=== PATIENT | male | born 1960 | race Caucasian/White ===

== ENCOUNTER 2017-10-03 05:39 | Inpatient (IN) | payer OTHER ==
[~2017-10-03] VITALS: Ht 180.3 cm; Wt 78.0 kg
[~2017-10-03 05:39] MED LIST: CLOB15CR19 TD; CODEINE PO; FIORICET PO; LISI-170 PO; MAGNESIUM HYDROXIDE 8%, 30ML UDC PO SCH; OXYC10TA6 PO
[2017-10-03] MEDS ORDERED: LACTATED RINGERS 1,000 ML IV SCH (06:19)
[2017-10-03] MEDS ORDERED: BUPIVACAINE/PF 0.25% ONE (06:50)
[2017-10-03] MEDS ORDERED: LIDOCAINE/PF 0.5% ,50ML ONE (06:50)
[2017-10-03] MEDS ORDERED: EPINEPHRINE 1 MG/ML, 1ML ONE (06:51)
[2017-10-03] MEDS ORDERED: THROMBIN 5,000 UNIT VIAL TP ONE (06:51)
[2017-10-03] MEDS ORDERED: VANCOMYCIN 1,000 MG ONE (06:51)
[2017-10-03] MEDS ORDERED: DEXAMETHASONE 4 MG/ML, 1ML ONE (07:27)
[2017-10-03] MEDS ORDERED: REMIFENTANIL 2 MG ONE (07:27)
[2017-10-03] MEDS ORDERED: METOCLOPRAMIDE 5 MG/ML, 2ML ONE (07:27)
[2017-10-03] MEDS ORDERED: GLYCOPYRROLATE 0.4 MG/2 ML, 2ML ONE (07:27)
[2017-10-03] MEDS ORDERED: EPHEDRINE 50 MG/ML, 1ML ONE (07:27)
[2017-10-03] MEDS ORDERED: ONDANSETRON 2MG/ML, 2ML ONE (07:27)
[2017-10-03] MEDS ORDERED: CEFAZOLIN 1,000 MG ONE (07:27)
[2017-10-03] MEDS ORDERED: PROPOFOL 50 ML ONE (07:27)
[2017-10-03] MEDS ORDERED: FENTANYL PF 100 MCG/2ML ONE ×4 (07:28→12:47)
[2017-10-03] MEDS ORDERED: MIDAZOLAM 1 MG/ML, 5ML ONE (07:28)
[2017-10-03] MEDS ORDERED: BUPIVACAINE/PF 0.25% INFIL ONE (08:43)
[2017-10-03] MEDS ORDERED: ROCURONIUM 10MG/ML,5ML ONE (09:37)
[2017-10-03] MEDS ORDERED: VANCOMYCIN 500 MG ONE (10:02)
[2017-10-03] MEDS ORDERED: KETAMINE 10 MG/ML, 20ML ONE (10:55)
[2017-10-03] MEDS ORDERED: EPHEDRINE 50 MG/ML, 1ML IVPush PRN (12:00)
[2017-10-03] MEDS ORDERED: ONDANSETRON 2MG/ML, 2ML IVPush PRN ×2 (12:00→12:30)
[2017-10-03] MEDS ORDERED: MIDAZOLAM 1 MG/ML, 2ML IV PRN (12:00)
[2017-10-03] MEDS ORDERED: ALBUTEROL SULFATE 2.5 MG/3 ML NPPB PRN (12:00)
[2017-10-03] MEDS ORDERED: hydrALAzine 20 MG/ML, 1ML IV PRN (12:00)
[2017-10-03] MEDS ORDERED: LABETALOL 5MG/ML, 20ML IV PRN (12:00)
[2017-10-03] MEDS ORDERED: METOCLOPRAMIDE 5 MG/ML, 2ML IV PRN (12:00)
[2017-10-03] MEDS ORDERED: HYDROmorphone 1 MG/ML, 1ML IV PRN (12:00)
[2017-10-03] MEDS ORDERED: OXYcodone 5 MG/5 ML ORAL.SOL UDC PO PRN (12:00)
[2017-10-03] MEDS ORDERED: ACETAMINOPHEN 650 MG/20.3 ML UDC ONE (12:04)
[2017-10-03] MEDS ORDERED: OXYcodone 5 MG/5 ML ORAL.SOL UDC ONE (12:04)
[2017-10-03] MEDS: FENTANYL PF 100 MCG/2ML IV PRN ×4 (12:07→12:56)
[2017-10-03] MEDS ORDERED: MEPERIDINE/PF 50 MG/ML ONE (12:10)
[2017-10-03] MEDS: MEPERIDINE/PF 25MG/0.5ML IVPush PRN ×2 (12:12→12:34)
[2017-10-03] MEDS ORDERED: LABETALOL 5MG/ML, 20ML IVPush PRN (12:30)
[2017-10-03] MEDS ORDERED: D5%-0.9% NACL+KCL 20MEQ 1,000 ML IV SCH (12:30)
[2017-10-03] MEDS ORDERED: PROMETHAZINE 25 MG/ML, 1ML IM PRN (12:30)
[2017-10-03] MEDS ORDERED: MAGNESIUM HYDROXIDE 8%, 30ML UDC PO PRN (12:30)
[2017-10-03] MEDS ORDERED: SENNA/DOCUSATE TABLET PO PRN (12:30)
[2017-10-03] MEDS ORDERED: METHOCARBAMOL 750 MG TABLET PO PRN (12:30)
[2017-10-03] MEDS ORDERED: METHOCARBAMOL 1,000 MG in DEXTROSE 5% 100 ML IV ONE ×2 (12:30→13:00)
[2017-10-03] MEDS ORDERED: HYDROcodone/APAP 10/325 MG TABLET PO PRN (12:30)
[2017-10-03] MEDS ORDERED: PHARMACY MAY ADJ FOR RENAL FX MC PRN (12:30)
[2017-10-03] MEDS ORDERED: HYDROcodone/APAP 5/325 TABLET PO PRN (12:30)
[2017-10-03] MEDS ORDERED: BISACODYL 10 MG SUPP PR PRN (12:30)
[2017-10-03 13:30] VITALS: BP 128/82
[2017-10-03] MEDS ORDERED: BUTALBIT/ACETAMIN/CAFF/CODEINE CAPSULE PO PRN (14:00)
[2017-10-03] MEDS ORDERED: ONDANSETRON ODT 4 MG PO PRN (14:00)
[2017-10-03] MEDS ORDERED: CLOBETASOL PROPIONATE CRM 0.05%, 15GM TP PRN (14:00)
[2017-10-03] MEDS: ACETAMINOPHEN 500 MG TABLET PO SCH ×2 (14:51→20:10)
[2017-10-03] MEDS: NS + 20MEQ KCL 1,000 ML IV SCH ×2 (14:52→23:23)
[2017-10-03] MEDS ORDERED: METOPROLOL 1 MG/ML, 5ML ONE (15:25)
[2017-10-03] MEDS ORDERED: SUCCINYLCHOLINE 20 MG/ML, 10ML ONE (15:25)
[2017-10-03] MEDS: CEFAZOLIN PMX 1GM/50ML 50 ML IVPB SCH ×2 (15:30→23:23)
[2017-10-03] MEDS ORDERED: CEFAZOLIN PMX 1GM/50ML 50 ML IVPB SCH (15:30)
[2017-10-03] MEDS: OXYcodone IR 5MG TABLET PO PRN ×2 (16:00→17:08)
[2017-10-03 20:00] VITALS: BP 132/80
[2017-10-03] MEDS: METHOCARBAMOL 750 MG in DEXTROSE 5% 100 ML IV SCH (20:10)
[2017-10-03] MEDS: SODIUM CHLORIDE FLUSH 10ML SYR IVF SCH (20:12)
[2017-10-03] MEDS ORDERED: METHOCARBAMOL 750 MG in DEXTROSE 5% 100 ML IV PRN (20:30)
[2017-10-03 23:26] VITALS: BP 120/74
[2017-10-04] MEDS: ACETAMINOPHEN 500 MG TABLET PO SCH ×4 (01:56→19:44)
[2017-10-04] MEDS: METHOCARBAMOL 750 MG in DEXTROSE 5% 100 ML IV SCH ×3 (04:20→21:32)
[2017-10-04 04:48] LABS: BASOPHILS % (AUTO) 1 % (0-1); EOSINOPHILS # (AUTO) 0.15 x10^3/uL (0-0.4); EOSINOPHILS % (AUTO) 2 % (1-7); LYMPHOCYTES % (AUTO) 18 % (22-44); MD NO; MEAN CORPUSCULAR HGB CONC 34.6 g/dL (33.2-36.2); MEAN CORPUSCULAR VOLUME 95.4 fL (81-97); MEAN PLATELET VOLUME 6.7 fL (7.4-10.4); MONOCYTES % (AUTO) 7 % (2-9); NEUTROPHILS # (AUTO) 7.06 x10^3/uL (1.8-6.8); NEUTROPHILS % (AUTO) 72 % (42-75); PLATELET COUNT 270 x10^3/uL (130-400); RED BLOOD COUNT 3.93 x10^6/uL (4.38-5.82); RED CELL DISTRIBUTION WIDTH 13.9 % (9.4-14.8)
[2017-10-04 04:59] LABS: ANION GAP 5 mmol/L (5-15); CALCIUM 7.8 mg/dL (8.5-10.1); CHLORIDE 108 mmol/L (98-107); CREATININE 0.72 mg/dL (0.7-1.3)
[2017-10-04 07:12] VITALS: BP 131/85
[2017-10-04] MEDS: LISINOPRIL 20 MG TABLET PO SCH (08:32)
[2017-10-04] MEDS: SODIUM CHLORIDE FLUSH 10ML SYR IVF SCH ×2 (08:32→21:32)
[2017-10-04] MEDS: CEFAZOLIN PMX 1GM/50ML 50 ML IVPB SCH ×3 (08:33→23:05)
[2017-10-04] MEDS: OXYcodone IR 5MG TABLET PO PRN ×4 (08:42→21:32)
[2017-10-04] MEDS: NS + 20MEQ KCL 1,000 ML IV SCH ×2 (10:30→19:44)
[2017-10-04] MEDS: DEXAMETHASONE 4 MG TABLET PO SCH ×2 (12:59→19:44)
[2017-10-04] MEDS: MAGNESIUM HYDROXIDE 8%, 30ML UDC PO SCH (12:59)
[2017-10-04 13:10] VITALS: BP 151/77
[2017-10-04] MEDS: MORPHINE SULFATE 4 MG/ML, 1ML IV PRN ×2 (14:47→19:44)
[2017-10-04 19:30] VITALS: BP 150/48
[2017-10-05] MEDS: MORPHINE SULFATE 4 MG/ML, 1ML IV PRN (00:06)
[2017-10-05 01:20] VITALS: BP 115/66
[2017-10-05] MEDS: OXYcodone IR 5MG TABLET PO PRN ×3 (01:42→09:24)
[2017-10-05] MEDS: ACETAMINOPHEN 500 MG TABLET PO SCH ×2 (01:42→08:22)
[2017-10-05] MEDS: METHOCARBAMOL 750 MG in DEXTROSE 5% 100 ML IV SCH (04:27)
[2017-10-05] MEDS: NS + 20MEQ KCL 1,000 ML IV SCH (04:30)
[2017-10-05 05:01] LABS: BASOPHILS # (AUTO) 0.02 x10^3/uL (0-0.1); BASOPHILS % (AUTO) 0 % (0-1); EOSINOPHILS # (AUTO) 0.01 x10^3/uL (0-0.4); EOSINOPHILS % (AUTO) 0 % (1-7); LYMPHOCYTES # (AUTO) 1.29 x10^3/uL (1-3.4); LYMPHOCYTES % (AUTO) 11 % (22-44); MD NO; MEAN CORPUSCULAR HGB CONC 34.5 g/dL (33.2-36.2); MEAN CORPUSCULAR VOLUME 95.7 fL (81-97); MEAN PLATELET VOLUME 6.9 fL (7.4-10.4); MONOCYTES # (AUTO) 0.67 x10^3/uL (0.2-0.8); MONOCYTES % (AUTO) 6 % (2-9); NEUTROPHILS # (AUTO) 9.68 x10^3/uL (1.8-6.8); NEUTROPHILS % (AUTO) 83 % (42-75); PLATELET COUNT 318 x10^3/uL (130-400); RED BLOOD COUNT 4.38 x10^6/uL (4.38-5.82); RED CELL DISTRIBUTION WIDTH 14.1 % (9.4-14.8)
[2017-10-05 05:05] LABS: ANION GAP 6 mmol/L (5-15); CALCIUM 8.6 mg/dL (8.5-10.1); CHLORIDE 104 mmol/L (98-107); CREATININE 0.81 mg/dL (0.7-1.3)
[2017-10-05] MEDS: MAGNESIUM HYDROXIDE 8%, 30ML UDC PO SCH (08:22)
[2017-10-05] MEDS: LISINOPRIL 20 MG TABLET PO SCH (08:22)
[2017-10-05] MEDS: SODIUM CHLORIDE FLUSH 10ML SYR IVF SCH (08:23)
[2017-10-05] MEDS: CEFAZOLIN PMX 1GM/50ML 50 ML IVPB SCH (08:24)
[2017-10-05 09:00] VITALS: BP 129/72
[2017-10-05] MEDS ORDERED: KETOROLAC 30 MG/1 ML IVPush ONE (11:00)
[2017-10-05] MEDS ORDERED: METHOCARBAMOL 750 MG TABLET PO SCH (20:30)
== END 2017-10-05 12:35 | disposition home or self-care (01) | DRG 460 ==
LOC: ORIP 05:39 → 4NOR 13:14 → DCLOUNGE 10-05 12:19
PROVIDERS: ADMIT Orthopaedic Surgery Orthopaedic Surgery of the Spine; ATTEND Orthopaedic Surgery Orthopaedic Surgery of the Spine
PROC: 01NB0ZZ Release Lumbar Nerve, Open Approach (ICD-10-PCS; 2017-10-03)
PROC: 0SG30AJ Fusion of Lumbosacral Joint with Interbody Fusion Device, Posterior Approach, Anterior Column, Open Approach (ICD-10-PCS; principal; 2017-10-03 07:30)
DX: M48.07 Spinal stenosis, lumbosacral region (principal); I10 Essential (primary) hypertension; M43.17 Spondylolisthesis, lumbosacral region
CPT/HCPCS: 36415; 72100; 80048; 85025; C1713; C1776; J0171; J0690; J1100; J1885; J2001; J2175; J2250; J2270; J2405; J2704; J3010; J3370; J3480; J3490; C1762; J0330; J2765; J2800; J7120

== ENCOUNTER 2021-01-02 10:28 | Emergency (ER) | payer BC, OTHER ==
[~2021-01-02] VITALS: Ht 180.3 cm; Wt 97.5 kg
[~2021-01-02 10:28] MED LIST changes: -MAGNESIUM HYDROXIDE 8%, 30ML UDC PO SCH
[2021-01-02 10:32] VITALS: BP 162/87
--- NOTE | 2021-01-02 10:50 | NUR ---
ER PA WAS IN TO SEE PT, RV'WD POC WITH HIM. PT INJURED BILAT ANKLES BUT MINIMAL PAIN TO R ANKLE. SIGNIFICANT PAIN & LIMITED MOBILITY TO L FOOT/ANKLE. PT STATES HE TOOK 2 PERCOCET THIS AM FOR PAIN (HAS RX D/T BACK PAIN).
[2021-01-02] MEDS ORDERED: KETOROLAC 30 MG/1 ML ONE (10:56)
[2021-01-02] MEDS ORDERED: KETOROLAC 30 MG/1 ML IM ONE (11:00)
--- NOTE | 2021-01-02 11:02 | NUR ---
PT MEDICATED PER ORDERS. XR AT BS.
--- NOTE | 2021-01-02 12:30 | NUR ---
L LEG SUGAR TONG SPLINT APPLIED BY PERSONAL CARE ASSISTANT, CMS INTACT. CRUTCHES & CRUTCH TEACHING PROVIDED. D/C INSTRUCTIONS, MEDS & F/U APPT RV'WD WITH PT, HE VERBALIZES UNDERSTANDING. ASSISTED OUT OF ED VIA WC; PT STATES HIS WILL TAKE HIM HOME.
== END 2021-01-02 12:36 | disposition home or self-care (01) ==
LOC: ED 12:00
DX: S82.432A Displaced oblique fracture of shaft of left fibula, initial encounter for closed fracture (principal); I10 Essential (primary) hypertension; X58.XXXA Exposure to other specified factors, initial encounter; Y93.01 Activity, walking, marching and hiking; Y92.89 Other specified places as the place of occurrence of the external cause; Y99.8 Other external cause status
CPT/HCPCS: 29515; 73610; 96372; 99283; J1885